=== PATIENT | male | born 1990 | race African-American/Black ===

== ENCOUNTER 2018-08-22 20:47 | Emergency (ER) | payer SELFPAY ==
[~2018-08-22] VITALS: Ht 175.3 cm; Wt 81.6 kg
[2018-08-22] MEDS ORDERED: ZIPRASIDONE IM 20 MG VIAL. IM ONE (21:00)
[2018-08-22 21:47] VITALS: BP 110/68
[2018-08-22 21:53] LABS: BASO % 0 % (0-3); EOS % 1 % (0-3); HEMATOCRIT 41.2 % (39.0-53.0); HEMOGLOBIN 13.6 g/dL (13.0-17.5); LYMPH % 21 % (24-48); MEAN CORPUSCULAR HEMOGLOBIN 30 pg (25-35); MEAN CORPUSCULAR HGB CONC 33 g/dL (31-37); MEAN CORPUSCULAR VOLUME 90 fL (79-100); MONO # 0.4 x10^3/uL (0.0-1.1); MONO % 8 % (0-9); NEUT # 3.4 x10^3uL (1.8-7.7); NEUT % 71 % (31-73); PLATELET COUNT 196 x10^3/uL (140-400); RED CELL DISTRIBUTION WIDTH 13.3 % (11.5-14.5); WHITE BLOOD COUNT 4.7 x10^3/uL (4.0-11.0)
[2018-08-22 22:01] LABS: CALCIUM 8.8 mg/dL (8.5-10.1); CREATININE 1.3 mg/dL (0.7-1.3); GFR 81.4; POTASSIUM 3.2 mmol/L (3.5-5.1)
[2018-08-22 22:07] LABS: ALBUMIN 4.1 g/dL (3.4-5.0); ALBUMIN/GLOBULIN RATIO 1.2 (1.0-1.7); TOTAL BILIRUBIN 0.8 mg/dL (0.2-1.0); TOTAL PROTEIN 7.5 g/dL (6.4-8.2)
[2018-08-22 22:08] LABS: ACETAMIN < 2 mcg/ml (10-30); ETHANOL < 10 mg/dL (0-10); SALIC < 2.8 mg/dL (2.8-20.0)
[2018-08-22 22:11] LABS: BARBITURATES NEG (NEG); BENZODIAZEPINES NEG (NEG); CANNABINOIDS POS (NEG); COCAINE NEG (NEG); METHADONE NEG (NEG); OPIATES NEG (NEG); PHENCYCLIDINE NEG (NEG)
[2018-08-22 22:12] LABS: AMPHETAMINE/METHAMPHETAMINE NEG (NEG)
[2018-08-22] MEDS ORDERED: POTASSIUM CHLORIDE 20 MEQ/15 ML ORAL LIQUID. PO ONE (22:30)
--- NOTE | 2018-08-22 23:30 | RAD ---
CT head without contrast: Reason for examination: Altered mental status. Right pupil asymmetric anisocoria. Unknown baseline. Axial images were obtained through the brain. No contrast was administered. Exposure: One or more of the following individualized dose reduction techniques were utilized for this examination: 1. Automated exposure control 2. Adjustment of the mA and/or kV according to patient size 3. Use of iterative reconstruction technique. Ventricular systems are symmetric and not abnormally dilated. No midline shift is seen. There is no evidence of intracranial hemorrhage, infarct, mass or edema. No gross abnormalities are evident at the orbits there is some focal mucosal thickening posterolateral representing a small polyp in the right maxillary antrum. Remaining paranasal sinuses and mastoid air cells are clear. No acute abnormality seen in the skull. IMPRESSION: Small polypoid lesion in the right maxillary antrum anteriorly. No acute intracranial abnormality evident. Electronically signed by: Denise Henry MD (08/22/2018 11:27 PM) [facility]
[2018-08-23] MEDS ORDERED: LORA-434 PO (00:41)
--- NOTE | 2018-08-23 02:53 | PHYS DOC ---
Past Medical History Past Medical History: Unknown Alcohol Use: None Drug Use: None Adult General Chief Complaint Chief Complaint: ALTERED MENTAL STATUS HPI HPI Patient is a 27 year old male brought in by ambulance with abnormal behavior. Apparently he is been intermittently agitated his sister thought that he might have smoked PCP she had no reason to believe that other then she had seen some other people on PCP and he kind of looked like that He did require restraints for a short period of time with the paramedics however he then calmed down on arrival to the emergency room but he was still intermittently agitated and we did give some Geodon to help with that for patient and staff safety Patient denied any head trauma he can tell me is in [place] further history was obtained from his girlfriend who said that he does have periods of depression he is not suicidal when someone asked him about his children he becomes withdrawn and appears to become acting like this more agitated and sometimes not making sense. She has been to [facility] with him twice in the last couple of weeks for similar findings at one point it did have him be evaluated by psychiatry but he left after about 3 or 4 hours he has no identifiable psychiatric diagnosis other than possibly PTSD but she doesn't have any information A details on that Review of Systems Review of Systems Constitutional: Denies fever or chills [] Eyes: Denies change in visual acuity, redness, or eye pain [] HENT: Denies nasal congestion or sore throat [] Respiratory: Denies cough or shortness of breath [] Cardiovascular: No additional information not addressed in HPI [] GI: Denies abdominal pain, nausea, vomiting, bloody stools or diarrhea [] : Denies dysuria or hematuria [] Musculoskeletal: Denies back pain or joint pain [] Integument: Denies rash or skin lesions [] Neurologic: Denies headache, focal weakness or sensory changes [] Endocrine: Denies polyuria or polydipsia [] All other systems were reviewed and found to be within normal limits, except as documented in this note. Current Medications Current Medications Current Medications Medications (Trade) Dose Ordered Sig/Constantin Start Time Stop Time Status Last Admin Dose Admin Potassium Chloride (KCl Oral Soln) 40 meq 1X ONCE 08/22/18 22:30 08/22/18 22:31 DC 08/22/18 23:32 40 MEQ Ziprasidone (Geodon Im) 20 mg 1X ONCE 08/22/18 21:00 08/22/18 21:01 DC 08/22/18 21:00 20 MG Allergies Allergies Allergies Coded Allergies Type Severity Reaction Last Updated Verified No Known Drug Allergies 08/22/18 No Physical Exam Physical Exam Constitutional: Well developed, well nourished, mild distress, non-toxic appearance. [] HENT: Normocephalic, atraumatic, bilateral external ears normal, oropharynx moist, no oral exudates, nose normal. [] Eyes: Right pupil 4 mm left pupil was 2 mm Neck: Normal range of motion, no tenderness, supple, no stridor. [] Cardiovascular:Heart rate regular rhythm, no murmur [] Lungs & Thorax: Bilateral breath sounds clear to auscultation [] Abdomen: Bowel sounds normal, soft, no tenderness, no masses, no pulsatile masses. [] Skin: Warm, dry, no erythema, no rash. [] Back: No tenderness, no CVA tenderness. [] Extremities: No tenderness, no cyanosis, no clubbing, ROM intact, no edema. [] Neurologic: Alert and responsive,knows he is in [place] knows he is at [facility] normal motor function, normal sensory function, no focal deficits noted. [] Psychologic: Patient appears to have an odd affect she denies suicidality his mood does appear to be possibly slightly depressed his affect is withdrawn Current Patient Data Vital Signs Vital Signs Date Time Temp Pulse Resp B/P (MAP) Pulse Ox O2 Delivery O2 Flow Rate FiO2 08/23/18 00:30 78 16 98 08/22/18 20:47 98.7 120/78 (92) 98.7 Lab Values Laboratory Tests Test 08/22/18 21:40 08/22/18 21:52 White Blood Count 4.7 x10^3/uL (4.0-11.0) Red Blood Count 4.60 x10^6/uL (4.30-5.70) Hemoglobin 13.6 g/dL (13.0-17.5) Hematocrit 41.2 % (39.0-53.0) Mean Corpuscular Volume 90 fL (79-100) Mean Corpuscular Hemoglobin 30 pg (25-35) Mean Corpuscular Hemoglobin Concent 33 g/dL (31-37) Red Cell Distribution Width 13.3 % (11.5-14.5) Platelet Count 196 x10^3/uL (140-400) Neutrophils (%) (Auto) 71 % (31-73) Lymphocytes (%) (Auto) 21 % (24-48) L Monocytes (%) (Auto) 8 % (0-9) Eosinophils (%) (Auto) 1 % (0-3) Basophils (%) (Auto) 0 % (0-3) Neutrophils # (Auto) 3.4 x10^3uL (1.8-7.7) Lymphocytes # (Auto) 1.0 x10^3/uL (1.0-4.8) Monocytes # (Auto) 0.4 x10^3/uL (0.0-1.1) Eosinophils # (Auto) 0.0 x10^3/uL (0.0-0.7) Basophils # (Auto) 0.0 x10^3/uL (0.0-0.2) Sodium Level 145 mmol/L (136-145) Potassium Level 3.2 mmol/L (3.5-5.1) L Chloride Level 106 mmol/L (98-107) Carbon Dioxide Level 27 mmol/L (21-32) Anion Gap 12 (6-14) Blood Urea Nitrogen 12 mg/dL (8-26) Creatinine 1.3 mg/dL (0.7-1.3) Estimated GFR (Cockcroft-Gault) 81.4 BUN/Creatinine Ratio 9 (6-20) Glucose Level 71 mg/dL (70-99) Calcium Level 8.8 mg/dL (8.5-10.1) Total Bilirubin 0.8 mg/dL (0.2-1.0) Aspartate Amino Transferase (AST) 19 U/L (15-37) Alanine Aminotransferase (ALT) 21 U/L (16-63) Alkaline Phosphatase 57 U/L (46-116) Total Protein 7.5 g/dL (6.4-8.2) Albumin 4.1 g/dL (3.4-5.0) Albumin/Globulin Ratio 1.2 (1.0-1.7) Salicylates Level < 2.8 mg/dL (2.8-20.0) L Salicylate Last Dose Date Unk Salicylate Last Dose Time Unk Acetaminophen Level < 2 mcg/ml (10-30) L Acetaminophen Last Dose Date Unk Acetaminophen Last Dose Time Unk Ethyl Alcohol Level < 10 mg/dL (0-10) Urine Opiates Screen Neg (NEG) Urine Methadone Screen Neg (NEG) Urine Barbiturates Neg (NEG) Urine Phencyclidine Screen Neg (NEG) Urine Amphetamine/Methamphetamine Neg (NEG) Urine Benzodiazepines Screen Neg (NEG) Urine Cocaine Screen Neg (NEG) Urine Cannabinoids Screen Pos (NEG) Urine Ethyl Alcohol Neg (NEG) Laboratory Tests 08/22/18 21:40 Laboratory Tests 08/22/18 21:40 EKG EKG [] Radiology/Procedures Radiology/Procedures [] Impressions: IMPRESSION: Small polypoid lesion in the right maxillary antrum anteriorly. No acute intracranial abnormality evident. Electronically signed by: Denise Cr MD (08/22/2018 11:27 PM) [facility] DICTATED and SIGNED BY: DENISE CR MD DATE: 08/22/18 1260 Course & Med Decision Making Course & Med Decision Making Pertinent Labs and Imaging studies reviewed. (See chart for details) []This is a 27-year-old male with a history of abnormal behavior altered mental status he does smoke marijuana 3 times a day. He denied suicidality. He appears to be somewhat disorganized and is not totally making linear since all the time . He did receive Geodon in the emergency room. Eloise came to evaluate this patient in the emergency room she evaluated him in detail. She feels that his behavior and mental status is likely related to heavy marijuana use. This is very possible he may have had something like K2 for example. She did not find an obvious reason that he should be held for psychiatric acute psychiatric care he is not suicidal he does not appear to be an obvious danger to himself or others. This sounds reasonable to me overall. We did discuss the possibility of a first psychotic break however seems to be less likely acutely that given the excessive marijuana use. I did speak with the patient's girlfriend in detail she feels comfortable taking him home. We did talk specifically about the fact that he may have an undiagnosed psychiatric illness but that he is safe to go home with her because he is not a danger to himself or others. We agreed that he can obtain psychiatric follow-up care and she plans to take him to [facility] at some point in the near future. Advised marijuana cessation as well. did head ct due to asymmetric pupils but ct head neg acute Dragon Disclaimer Dragon Disclaimer This electronic medical record was generated, in whole or in part, using a voice recognition dictation system. Departure Departure Impression: Primary Impression: Marijuana abuse Disposition: HOME, SELF-CARE Condition: STABLE Patient Instructions: Marijuana Abuse-Brief Scripts Lorazepam (ATIVAN) 1 Mg Tablet 1 MG PO BID PRN for ANXIETY / AGITATION, #20 TAB Prov: MAICOL ARNDT MD 08/23/18 MAICOL ARNDT MD Aug 23, 2018 02:53
== END 2018-08-23 00:40 | disposition home or self-care (01) ==
LOC: ER 20:57
DX: F12.10 Cannabis abuse, uncomplicated (principal); R45.1 Restlessness and agitation; R51 Headache
CPT/HCPCS: 36415; 70450; 80053; 80307; 80329; 85025; 96372; 99285; G0480; J3486

== ENCOUNTER 2020-07-14 11:25 | Emergency (ER) | payer SELFPAY ==
[~2020-07-14] VITALS: Ht 177.8 cm; Wt 81.8 kg
[~2020-07-14 11:25] MED LIST: LORA-434 PO
[2020-07-14] MEDS ORDERED: ACETAMINOPHEN 500 MG TABLET PO ONE (12:00)
[2020-07-14] MEDS ORDERED: IBUPROFEN 400 MG TABLET. PO ONE (12:00)
--- NOTE | 2020-07-14 12:50 | PHYS DOC ---
Past Medical History Past Medical History: No Pertinent History, Unknown Past Surgical History: No Surgical History Smoking Status: Current Every Day Smoker Alcohol Use: None Drug Use: None General Adult EDM: Chief Complaint: ANKLE PROBLEM HPI: HPI: Patient is a 29 year old male who presented to ER due to left ankle injury. Patient said he was trying to do a short car bigeminal of the fence, he landed on his left foot and twisted his left ankle. Complaint of left ankle pain denies any other injury, denies any left knee pain or pelvic pain or hip pain. Review of Systems: Review of Systems: Constitutional: Denies fever or chills. [] Eyes: Denies change in visual acuity. [] HENT: Denies nasal congestion or sore throat. [] Respiratory: Denies cough or shortness of breath. [] Cardiovascular: Denies chest pain or edema. [] GI: Denies abdominal pain, nausea, vomiting, bloody stools or diarrhea. [] : Denies dysuria. [] Musculoskeletal: positive for left ankle pain Integument: Denies rash. [] Neurologic: Denies headache, focal weakness or sensory changes. [] Endocrine: Denies polyuria or polydipsia. [] Lymphatic: Denies swollen glands. [] Psychiatric: Denies depression or anxiety. [] Heart Score: C/O Chest Pain: N/A Risk Factors: Risk Factors: DM, Current or recent (<one month) smoker, HTN, HLP, family history of CAD, obesity. Risk Scores: Score 0 - 3: 2.5% MACE over next 6 weeks - Discharge Home Score 4 - 6: 20.3% MACE over next 6 weeks - Admit for Clinical Observation Score 7 - 10: 72.7% MACE over next 6 weeks - Early Invasive Strategies Current Medications: Current Medications Medications (Trade) Dose Ordered Sig/Constantin Start Time Stop Time Status Last Admin Dose Admin Acetaminophen (Tylenol) 1,000 mg 1X ONCE 07/14/20 12:00 07/14/20 12:03 DC 07/14/20 12:08 1,000 MG Ibuprofen (Motrin) 800 mg 1X ONCE 07/14/20 12:00 07/14/20 12:03 DC 07/14/20 12:08 800 MG Allergies: Allergies: Allergies Coded Allergies Type Severity Reaction Last Updated Verified No Known Drug Allergies 08/22/18 No Physical Exam: PE: Constitutional: Well developed, well nourished, no acute distress, non-toxic appearance. [] HENT: Normocephalic, atraumatic, bilateral external ears normal, Eyes: PERRLA, EOMI, conjunctiva normal, no discharge. [] Neck: Normal range of motion, no tenderness, supple, no stridor. [] Cardiovascular:Heart rate regular rhythm, no murmur [] Skin: Warm, dry, no erythema, no rash. [] Back: No tenderness, no CVA tenderness. [] Extremities: Left ankle is tender to palpation, minimal swelling, no deformity noted. Neurologic: Alert and oriented X 3, normal motor function, normal sensory function, no focal deficits noted. [] Psychologic: Affect normal, judgement normal, mood normal. [] Current Patient Data: Vital Signs: Vital Signs Date Time Temp Pulse Resp B/P (MAP) Pulse Ox O2 Delivery O2 Flow Rate FiO2 07/14/20 11:38 98.5 96 16 129/60 (83) 100 Room Air 98.5 EKG: EKG: [] Radiology/Procedures: Radiology/Procedures: [[facility] [address] [place] [address] IMAGING REPORT Signed PATIENT: SONG FRANCIS ACCOUNT: [id number] : 1990 LOCATION: ER AGE: 29 SEX: M EXAM STATUS: REG ER ORD. PHYSICIAN: ALTHEA SCHNEIDER DO REASON: left ankle injured, tried to jump fence PROCEDURE: ANKLE LEFT 3V EXAM: Left ankle, 3 views. HISTORY: Trauma. COMPARISON: None. FINDINGS: 3 views of the left ankle are obtained. There is a small avulsion fracture fragment along the inferior aspect of the medial malleolus. There is diffuse ankle soft tissue swelling. Ankle mortise is intact. There is no osteochondral lesion. IMPRESSION: Small fracture fragment inferior to the medial malleolus and diffuse soft tissue swelling. Electronically signed by: Sara Trinh MD (07/14/2020 12:48 PM) [id number] DICTATED and SIGNED BY: SARA TRINH MD DATE: 07/14/20 [id number] Course & Med Decision Making: Course & Med Decision Making Pertinent Labs and Imaging studies reviewed. (See chart for details) Patient is a 29-year-old male who sustained an avulsion fracture of of the left ankle. A stirrup splint was applied to the left ankle by tech, patient be discharged home with crutches, he will need to follow-up with orthopedic surgeon for outpatient evaluation and treatment. Dragon Disclaimer: Dragon Disclaimer: This electronic medical record was generated, in whole or in part, using a voice recognition dictation system. Departure Departure Impression: Primary Impression: Avulsion fracture of ankle Disposition: DC HOME SELF CARE/HOMELESS Condition: STABLE Referrals: NO PCP (PCP) SHENG CROWLEY MD Please call this orthopedic surgeon for outpatient follow up next week. Patient Instructions: Ankle Fracture with Rehab[facility], Avulsion Fracture Additional Instructions: Thank you for visiting our Emergency Department. We appreciate you trusting us with your care. If any additional problems come up don't hesitate to return to visit us. Please follow up with your primary care provider so they can plan additional care if needed and know about the problem that you had. If symptoms worsen come back to the Emergency Department. Any concerning symptoms that start such as chest pain, shortness of air, weakness or numbness on one side of the body, running high fevers or any other concerning symptoms return to the ER. Scripts Tramadol Hcl (TRAMADOL HCL) 50 Mg Tablet 50 MG PO Q6HRS PRN for PAIN, #15 TAB Prov: ALTHEA SCHNEIDER DO 07/14/20 ALTHEA SCHNEIDER DO Jul 14, 2020 12:50
--- NOTE | 2020-07-14 12:51 | RAD ---
EXAM: Left ankle, 3 views. HISTORY: Trauma. COMPARISON: None. FINDINGS: 3 views of the left ankle are obtained. There is a small avulsion fracture fragment along t he inferior aspect of the medial malleolus. There is diffuse ankle soft tissue swelling. Ankle mortis e is intact. There is no osteochondral lesion. IMPRESSION: Small fracture fragment inferior to the medial malleolus and diffuse soft tissue swelling . Electronically signed by: Sara Mena MD (07/14/2020 12:48 PM) [id number]
[2020-07-14] MEDS ORDERED: TRAM50TA PO (13:06)
[2020-07-14 13:08] VITALS: BP 122/61
== END 2020-07-14 13:28 | disposition home or self-care (01) ==
LOC: ER 11:25
DX: S82.52XA Displaced fracture of medial malleolus of left tibia, initial encounter for closed fracture (principal); F17.200 Nicotine dependence, unspecified, uncomplicated; W18.39XA Other fall on same level, initial encounter; Y93.89 Activity, other specified; Y92.89 Other specified places as the place of occurrence of the external cause; Y99.8 Other external cause status
CPT/HCPCS: 29515; 73610; 99283

== ENCOUNTER 2020-07-31 19:24 | Emergency (ER) | payer SELFPAY ==
[~2020-07-31] VITALS: Ht 180.3 cm; Wt 81.8 kg
[~2020-07-31 19:24] MED LIST changes: +TRAM50TA PO
[2020-07-31 19:28] VITALS: BP 120/62
--- NOTE | 2020-07-31 19:35 | PHYS DOC ---
Past Medical History Past Medical History: No Pertinent History, Unknown Past Surgical History: No Surgical History Smoking Status: Current Every Day Smoker Alcohol Use: None Drug Use: None General Adult EDM: Chief Complaint: OTHER COMPLAINTS HPI: HPI: Patient is a 29 year old male who presents with was here on July 14 for a a avulsion fracture of the left ankle. He has an appointment with orthopedics on August 04 in 4 days. Patient is here today because he wants the splint rewrapped with a new Bradley bandage. Patient has no other complaints. Patient denies any pain or uncontrolled pain, numbness or tingling or increased swelling. Patient can wiggle his toes. Review of Systems: Review of Systems: Constitutional: Denies fever or chills. [] Eyes: Denies change in visual acuity. [] HENT: Denies nasal congestion or sore throat. [] Respiratory: Denies cough or shortness of breath. [] Cardiovascular: Denies chest pain or edema. [] GI: Denies abdominal pain, nausea, vomiting, bloody stools or diarrhea. [] : Denies dysuria. [] Musculoskeletal: Denies back pain or joint pain. + New Bradley bandage to left lower leg [] Integument: Denies rash. [] Neurologic: Denies headache, focal weakness or sensory changes. [] Endocrine: Denies polyuria or polydipsia. [] Lymphatic: Denies swollen glands. [] Psychiatric: Denies depression or anxiety. [] Heart Score: C/O Chest Pain: No Risk Factors: Risk Factors: DM, Current or recent (<one month) smoker, HTN, HLP, family history of CAD, obesity. Risk Scores: Score 0 - 3: 2.5% MACE over next 6 weeks - Discharge Home Score 4 - 6: 20.3% MACE over next 6 weeks - Admit for Clinical Observation Score 7 - 10: 72.7% MACE over next 6 weeks - Early Invasive Strategies Allergies: Allergies: Allergies Coded Allergies Type Severity Reaction Last Updated Verified No Known Drug Allergies 08/22/18 No Physical Exam: PE: Constitutional: Well developed, well nourished, no acute distress, non-toxic appearance. [] HENT: Normocephalic, atraumatic, bilateral external ears normal, oropharynx moist, no oral exudates, nose normal. [] Eyes: PERRLA, EOMI, conjunctiva normal, no discharge. [] Neck: Normal range of motion, no tenderness, supple, no stridor. [] Cardiovascular:Heart rate regular rhythm, no murmur [] Lungs & Thorax: Bilateral breath sounds clear to auscultation [] Abdomen: Bowel sounds normal, soft, no tenderness, no masses, no pulsatile masses. [] Skin: Warm, dry, no erythema, no rash. [] Back: No tenderness, no CVA tenderness. [] Extremities: No tenderness, no cyanosis, no clubbing, ROM intact, no edema. [] Neurologic: Alert and oriented X 3, normal motor function, normal sensory function, no focal deficits noted. [] Psychologic: Affect normal, judgement normal, mood normal. [] Normal physical exam EKG: EKG: [] Radiology/Procedures: Radiology/Procedures: [] Course & Med Decision Making: Course & Med Decision Making Pertinent Labs and Imaging studies reviewed. (See chart for details) See HPI. Patient is using crutches. Skin pink warm and dry. Pedal pulse strong present. Cap refill less than 2 seconds. Patient splint is rewrapped with Bradley wrap. The splint itself is in good condition. Patient to follow-up with orthopedics as scheduled. [] Ruy Disclaimer: Ruy Disclaimer: This electronic medical record was generated, in whole or in part, using a voice recognition dictation system. Departure Departure Impression: Primary Impression: Encounter for medical screening examination Disposition: 01 DC HOME SELF CARE/HOMELESS Condition: STABLE Referrals: NO PCP (PCP) Patient Instructions: Medical Screening Exam Additional Instructions: Follow-up with orthopedics as scheduled. CRYSTAL VENTURA REAMING MACHINE OPERATOR Jul 31, 2020 19:35
== END 2020-07-31 19:40 | disposition home or self-care (01) ==
LOC: ER 19:24
DX: S82.892G Other fracture of left lower leg, subsequent encounter for closed fracture with delayed healing (principal); F17.200 Nicotine dependence, unspecified, uncomplicated; X58.XXXD Exposure to other specified factors, subsequent encounter
CPT/HCPCS: 99282

== ENCOUNTER 2021-01-15 02:20 | Emergency (ER) | payer SELFPAY ==
[~2021-01-15] VITALS: Ht 180.3 cm; Wt 79.5 kg
--- NOTE | 2021-01-15 02:41 | PHYS DOC ---
Past Medical History Past Medical History: No Pertinent History, Unknown Past Surgical History: No Surgical History Smoking Status: Current Every Day Smoker Alcohol Use: Occasionally Drug Use: None General Adult EDM: Chief Complaint: KNEE INJURY HPI: HPI: 30-year-old male presents to the emergency department complaining of left knee pain after he bent down to citrus picker something and felt a pop in his left knee. He is unable to extend his knee, preferring to hold in flexion. He believes something is out of place. He denies any further symptoms. He has never had surgery on his knee before. The patient denies nausea, vomiting, fever, chills, chest pain, shortness of breath, abdominal pain, urinary symptoms, cough, or any other complaints. Review of Systems: Review of Systems: ROS is otherwise negative except for what was mentioned in HPI Heart Score: C/O Chest Pain: No Allergies: Allergies: Allergies Coded Allergies Type Severity Reaction Last Updated Verified No Known Drug Allergies 08/22/18 No Physical Exam: PE: Constitutional: Moderate acute distress, non-toxic appearance. HENT: Atraumatic, bilateral external ears normal, nose normal. Eyes: PERRLA, EOMI, conjunctiva normal, no discharge. Neck: Normal range of motion, supple, no stridor. Cardiovascular: Heart rate regular rhythm. 2+ radial pulses Lungs & Thorax: No respiratory distress, symmetrical expansion. Skin: Warm, dry. Extremities: Patient holds left knee in flexion, tenderness elicited upon extension of the knee joint, palpation of the knee joint particular in the mi ddle aspect, no apparent deformity seen on gross examination with the knee flexed, 2+ results to his pulse, lower extremity dermatomes are intact, patient is not able to bear weight at this time Neurologic: Alert and oriented X 3, normal motor function, normal sensory function, no focal deficits noted. Non ataxic gait. GCS 15. Psychologic: Affect normal, judgment normal, mood normal. Current Patient Data: Vital Signs: Vital Signs Date Time Temp Pulse Resp B/P (MAP) Pulse Ox O2 Delivery O2 Flow Rate FiO2 01/15/21 03:56 16 99 Room Air 01/15/21 03:51 59 19 107/55 (72) 100 Room Air 01/15/21 03:21 60 18 115/58 (77) 100 Room Air 01/15/21 02:51 70 18 120/64 (82) 98 Room Air 01/15/21 02:49 99 01/15/21 02:20 98.6 77 20 131/67 (88) 100 Room Air 98.6 Radiology/Procedures: Radiology/Procedures: Left knee 3 views: Reason for examination: Knee pain. No acute fracture or dislocation is evident. The bone density is normal. No abnormal periosteal reaction is seen. Joint spaces appear to be maintained. No joint effusion is evident. IMPRESSION: No acute abnormality evident at the left knee. Electronically signed by: Denise Henry MD (01/15/2021 4:13 AM) Course & Med Decision Making: Course & Med Decision Making differential includes ligament tear, will refer to ortho for outpatient MRI, brace provided, instructed patient on pain management at home and return precautions Departure Departure Impression: Primary Impression: Knee pain, left Disposition: 01 HOME / SELF CARE / HOMELESS Condition: STABLE Referrals: NO PCP (PCP) HIRA DUBOIS DO Patient Instructions: Knee - Cartilage (Meniscus) Injury Additional Instructions: You were seen in the emergency department and your health condition was deemed not to require admission to the hospital. It is important to realize that we can only evaluate you during the time that you are in her department. Occasionally health conditions can worsen upon leaving the emergency department. If this were to happen, please return to and allow us the opportunity to reevaluate you. It is a pleasure to take care of your health needs. Return to the ER if your symptoms worsen, do not improve, or if you develop additional symptoms that are concerning to you. Please follow-up with orthopedics in 1 to 2 weeks Scripts Oxycodone Hcl (OXYCODONE HCL) 5 Mg Capsule 5 MG PO PRN Q6HRS PRN for PAIN for 2 Days, #8 TAB 0 Refills Prov: MAICOL FARMER DO 01/15/21 MAICOL FARMER DO Jan 15, 2021 02:41
[2021-01-15] MEDS ORDERED: fentaNYL PF VIAL 100 MCG/2 ML VIAL IVP ONE ×2 (03:00→04:00)
--- NOTE | 2021-01-15 04:15 | RAD ---
Left knee 3 views: Reason for examination: Knee pain. No acute fracture or dislocation is evident. The bone density is normal. No abnormal periosteal react ion is seen. Joint spaces appear to be maintained. No joint effusion is evident. IMPRESSION: No acute abnormality evident at the left knee. Electronically signed by: Denise Henry MD (01/15/2021 4:13 AM) [facility]
[2021-01-15 04:21] VITALS: BP 111/54
[2021-01-15] MEDS ORDERED: OXYC5CAP PO (04:34)
== END 2021-01-15 04:41 | disposition home or self-care (01) ==
LOC: ER 02:20
DX: M25.562 Pain in left knee (principal); F17.200 Nicotine dependence, unspecified, uncomplicated
CPT/HCPCS: 29505; 73562; 96374; 96376; 99284; J3010